=== PATIENT | male | born 1975 | race Hispanic/Latino ===

== ENCOUNTER → 2019-05-11 | Outpatient (CLI) | payer OTHER ==
[2019-05-11 14:32] LABS: BASOPHILS # (AUTO) 0.1 (0.0-0.1); BASOPHILS % 0.8 % (0.0-1.0); EOSINOPHILS # (AUTO) 0.3 (0.0-0.4); EOSINOPHILS % 3.1 % (0.0-6.0); HEMATOCRIT 47.2 % (38.2-49.6); HEMOGLOBIN 15.8 g/dL (14.0-18.0); MEAN CORPUSCULAR HEMOGLOBIN 29.4 pg (28-32); MEAN CORPUSCULAR HGB CONC 33.5 g/dL (31-35); MEAN CORPUSCULAR VOLUME 87.9 fL (81-99); MONOCYTES % 11.2 % (4.4-11.3); NEUTROPHILS # (AUTO) 4.6 (2.1-6.9); NEUTROPHILS % 51.1 % (38.7-80.0); PLATELET COUNT 328 x10e3/uL (140-360); RED BLOOD COUNT 5.37 x10e6/uL (4.3-5.7); RED CELL DISTRIBUTION WIDTH 13.2 % (11.7-14.4)
[2019-05-11 14:46] LABS: ALANINE AMINOTRANSFERASE 25 IU/L (0-55); ALBUMIN 4.6 g/dL (3.5-5.0); ALBUMIN/GLOBULIN RATIO 1.3 (0.8-2.0); ALKALINE PHOSPHATASE 68 IU/L (40-150); ANION GAP 13.9 mmol/L (8-16); BLOOD UREA NITROGEN 13 mg/dL (7-26); BUN/CREATININE RATIO 11 (6-25); CALCIUM 9.9 mg/dL (8.4-10.2); CARBON DIOXIDE 28 mmol/L (22-29); CHLORIDE 101 mmol/L (98-107); CREATININE, SERUM 1.18 mg/dL (0.72-1.25); EST GLOMERULAR FILTRATION RATE > 60 ML/MIN (60-); GLUCOSE 87 mg/dL (74-118); POTASSIUM 3.9 mmol/L (3.5-5.1); SODIUM 139 mmol/L (136-145)
[2019-05-11 15:06] LABS: FREE THYROXINE INDEX 2.6088 (1.4-3.8)
--- NOTE | 2019-05-11 15:37 | Diagnostic Imaging Report ---
EXAMINATION: CHEST 2 VIEWS INDICATION: Epigastric pain COMPARISON: Chest radiograph of 12/04/2009 FINDINGS: LINES/TUBES:None LUNGS:The lungs are well-inflated. No focal consolidation or pulmonary edema. PLEURA:No pleural effusion or pneumothorax. MEDIASTINUM:The cardiomediastinal silhouette appears normal in size and shape. BONES/SOFT TISSUES:No acute osseous injury. ABDOMEN:No free air under the diaphragm. IMPRESSION: No focal pneumonia or pulmonary edema. Signed by: Romel Gregory MD on 05/11/2019 3:34 PM
[2019-05-11 15:47] LABS: THYROID STIMULATING HORMONE 2.258 uIU/mL (0.350-4.940)
== END ==
LOC: RAD 14:05
PROVIDERS: ATTEND Surgery
DX: R10.13 Epigastric pain (principal)
CPT/HCPCS: 36415; 71046; 80053; 84436; 84443; 84479; 85025

== ENCOUNTER 2020-01-21 12:30 | Inpatient (IN) | payer OTHER ==
[~2020-01-21] VITALS: Ht 170.2 cm; Wt 95.3 kg
[2020-01-21] MEDS ORDERED: SODIUM CHLORIDE 0.9% 1000ML 1,000 ML IV STA (12:31)
--- OUTSIDE RECORDS SUMMARY | 2020-01-21 12:32 | XMS REPORT ---
Author Author [facility] Organization [facility] Address [address] [place] [address] [place] [id number] Phone Unavailable Care Team Providers Care Welder Setter Resistance Machine Name Role Phone Jaymie STEEL Attphys Unavailable Problems This patient has no known problems. Allergies, Adverse Reactions, Alerts This patient has no known allergies or adverse reactions. Medications This patient has no known medications. Procedures This patient has no known procedures. Results Test Description Test Time Test Comments Results Result Comments Source CHEST 2 VIEWS 2019-05-11 15:30:00 [place] [id number] Patient Name: AGUSTIN STEEL MR #: [id number] : 1975 Age/Sex: 43/M Req #: [id number] Adm Physician: Ordered by: HERMELINDO STEEL MD Report #: [id number] Location: [facility] Room/Bed: Procedure: [id number] DX/CHEST 2 VIEWS Exam Date: 05/11/19 Exam Time: 1504 REPORT STATUS: Signed EXAMINATION: CHEST 2 VIEWS INDICATION: Epigastric pain COMPARISON: Chest radiograph of 12/04/2009 FINDINGS: LINES/TUBES:None LUNGS:The lungs are well-inflated. No focal consolidation or pulmonary edema. PLEURA:No pleural effusion or pneumothorax. MEDIASTINUM:The cardiomediastinal silhouette appears normal in size and shape. BONES/SOFT TISSUES:No acute osseous injury. ABDOMEN:No free air under the diaphragm. IMPRESSION: No focal pneumonia or pulmonary edema. Signed by: Marie Gregory MD on 05/11/2019 3:34 PM Dictated By: MARIE GREGORY MD [id number] Transcribed By: KETURAH on 05/11/19 1534 COPY TO: HERMELINDO STEEL MD
[2020-01-21] MEDS ORDERED: AMIODARONE HCL 360MG 200 ML IV SCH ×2 (12:45→18:00)
[2020-01-21] MEDS ORDERED: ASPIRIN 81 MG CHEW TAB PO ONE ×2 (12:45→13:00)
[2020-01-21] MEDS ORDERED: AMIODARONE HCL 150MG 100 ML IV SCH (12:45)
--- NOTE | 2020-01-21 12:45 | NUR ---
PATIENT MOVED FROM ROOM 2 TO ROOM 1. PATIENT PLACED ON LIFEPACK AND GROUND WIRER. 6 MG ADENOSINE GIVEN TO LEFT AC 18G IVP AND FLUSHED. NO CHANGE IN RHYTHM NOTED. PATIENT TOLERATED WELL.
[2020-01-21] MEDS ORDERED: ADENOSINE 6MG/2ML 1 ML ONE (12:50)
--- NOTE | 2020-01-21 12:50 | NUR ---
12 MG ADENOSINE GIVEN TO LEFT AC 18G IVP AND FLUSHED IMMEDIATELY AFTER. PATIENT HAD BRIEF CHANGE TO NSR AND THEN RETURNED TO A-FLUTTER WITH A RATE IN THE 150'S. PATIENT TOLERATED WELL, APPEARS IN NO DISTRESS, DENIES ANY PAIN OR SHORTNESS OF BREATH.
[2020-01-21] MEDS ORDERED: ADENOSINE 6MG/2ML 2 ML ONE (12:55)
[2020-01-21 12:56] LABS: BASOPHILS # (AUTO) 0.1 (0.0-0.1); EOSINOPHILS # (AUTO) 0.2 (0.0-0.4); EOSINOPHILS % 2.5 % (0.0-6.0); LYMPHOCYTES # (AUTO) 3.5 (1.0-3.2); LYMPHOCYTES % 37.4 % (18.0-39.1); MEAN CORPUSCULAR HEMOGLOBIN 29.4 pg (28-32); MEAN CORPUSCULAR HGB CONC 33.3 g/dL (31-35); MEAN CORPUSCULAR VOLUME 88.1 fL (81-99); MONOCYTES # (AUTO) 1.2 (0.2-0.8); MONOCYTES % 12.6 % (4.4-11.3); NEUTROPHILS # (AUTO) 4.2 (2.1-6.9); NEUTROPHILS % 45.8 % (38.7-80.0); PLATELET COUNT 340 x10e3/uL (140-360); RED BLOOD COUNT 5.79 x10e6/uL (4.3-5.7)
[2020-01-21] MEDS ORDERED: ONDANSETRON HCL INJ 2MG/ML 2ML 2 MG/ML VIAL IV PRN (13:00)
[2020-01-21] MEDS ORDERED: METOPROLOL TARTRATE INJ 1 MG/ML VIAL IV PRN (13:00)
[2020-01-21] MEDS ORDERED: SODIUM CHLORIDE FLUSH 10 ML SYR INJ PRN (13:00)
[2020-01-21 13:07] LABS: INR 0.88; PROTHROMBIN TIME 12.4 seconds (11.9-14.5)
--- NOTE | 2020-01-21 13:09 | NUR ---
RESUMED CARE FROM PATRICK STEEL AND DR ROMANO AT BEDSIDE
[2020-01-21] MEDS ORDERED: AMIODARONE HCL 900 MG in DEXTROSE 5 % 500ML BOTTLE 500 ML IV SCH (13:15)
[2020-01-21] MEDS ORDERED: AMIODARONE HCL 150 MG in DEXTROSE 5% 100ML 100 ML IV SCH (13:15)
[2020-01-21 13:16] LABS: ALBUMIN 4.3 g/dL (3.5-5.0); ALBUMIN/GLOBULIN RATIO 1.1 (0.8-2.0); ANION GAP 14.9 mmol/L (8-16); CALCIUM 9.9 mg/dL (8.4-10.2); CREATININE, SERUM 1.47 mg/dL (0.72-1.25); MAGNESIUM 2.1 MG/DL (1.3-2.1); POTASSIUM 3.9 mmol/L (3.5-5.1)
--- NOTE | 2020-01-21 13:17 | Diagnostic Imaging Report ---
Examination: Single AP view of the chest. COMPARISON: Chest 2 views 05/11/2019 INDICATION: Palpitations IMPRESSION: 1. Lines and Tubes: None 2. Lungs are grossly clear. No consolidation or effusion. 3. Cardiomediastinal silhouette is normal. Pulmonary vasculature is normal. 4. No acute bony abnormalities. Signed by: Dr. Pierre Chakraborty M.D. on 01/21/2020 1:14 PM
[2020-01-21] MEDS ORDERED: APIXABAN 5 MG TABLET PO ONE (13:30)
--- OUTSIDE RECORDS SUMMARY | 2020-01-21 13:31 | XMS REPORT ---
Author Author [facility] Organization [facility] Address [address] [place] [address] Phone Unavailable Care Team Providers Care Sales Representative Leather Goods Name Role Phone Wang SOLIMAN Attphys Unavailable Jaymie STEEL Attphys Unavailable BRADLY ROMANO Admphys Unavailable Problems This patient has no known problems. Allergies, Adverse Reactions, Alerts This patient has no known allergies or adverse reactions. Medications This patient has no known medications. Procedures This patient has no known procedures. Results Test Description Test Time Test Comments Results Result Comments Source CHEST SINGLE (PORTABLE) 2020-01-21 13:13:00 [place] [address] Patient Name: AGUSTIN STEEL MR #: [id number] : 1975 Age/Sex: 44/M Req #: [id number] Adm Physician: Ordered by: KENDRA SOLIMAN MD Report #: [id number] Location: ER Room/Bed: Procedure: [id number] DX/CHEST SINGLE (PORTABLE) Exam Date: 01/21/20 Exam Time: 1257 REPORT STATUS: Signed Examination: Single AP view of the chest. COMPARISON: Chest 2 views 05/11/2019 INDICATION: Palpitations IMPRESSION: 1. Lines and Tubes: None 2. Lungs are grossly clear. No consolidation or effusion. 3. Cardiomediastinal silhouette is normal. Pulmonary vasculature is normal. 4. No acute bony abnormalities. Signed by: Dr. Zhang Chakraborty M.D. on 01/21/2020 1:14 PM Dictated By: ZHANG CHAKRABORTY MD 13 Transcribed By: KETURAH on 01/21/201313 COPY TO: KENDRA SOLIMAN MD CHEST 2 VIEWS 2019-05-11 15:30:00 [place] [id number] Patient Name: AGUSTIN STEEL MR #: [id number] : 1975 Age/Sex: 43/M Req #: [id number] Adm Physician: Ordered by: HERMELINDO STEEL MD Report #: [id number] Location: [facility] Room/Bed: Procedure: [id number] DX/CHEST 2 VIEWS Exam Date: 05/11/19 Exam [...] pneumonia or pulmonary edema. Signed by: Marie Goetz MD on 05/11/2019 3:34 PM Dictated By: MARIE GOETZ MD 33 Transcribed By: KETURAH on 05/11/191533 COPY TO: HERMELINDO STEEL MD
--- NOTE | 2020-01-21 13:44 | NUR ---
DR. ROMANO AT BEDSIDE RE EVALUATING PATIENT
--- NOTE | 2020-01-21 13:52 | Emergency Department Note ---
History of Present Illnes History of Present Illness Chief Complaint: Chest Pain History of Present Illness This is a 44 year old male COMPLAINTS OF SHORTNESS OF BREATH AND PALPITATIONS LAST NIGHT AFTER PLAYING GOLF, AND AGAIN TODAY. HIS UNCLE (DR Alessandro STEEL) CAME TO HOUSE FOUND HIS HR TO BE ~150 AND NORMAL BP AND BROUGHT HIM HERE Historian: Patient, Family Member Arrival Mode: Car Property Claim Rep Required: No Onset (how long ago): day(s) (YESTERDAY ~6 PM) Quality: NO PAIN Radiation: non-radiation Severity: moderate Onset quality: sudden Duration (how long): day(s) (YESTERDAY) Timing of current episode: constant Progression: unchanged Chronicity: new Context: recent illness Relieving factors: none Exacerbating factors: none Associated symptoms: shortness of breath Treatments prior to arrival: none Past Medical/Family History Physician Review I have reviewed the patient's past medical and family history. Any updates have been documented here. Past Medical History Recent Fever: No Clinical Suspicion of Infectio: No New/Unexplained Change in Ment: No Past Medical History: Hypertension Past Surgical History: Hernia Repair Social History Smoking Cessation: Never Smoker Counseling Performed: No Alcohol Use: Occasional Any Illegal Drug Use: No TB Exposure/Symptoms: No Physically hurt or threatened: No Family History Family history of heart diseas: Yes Other Last Tetanus: UTD Any Pre-Existing Lines (PICC,: No Is patient up to date on immun: Yes Last Flu: UTD Last Pneumovax: NA Review of Systems Review of Systems Constitutional: no symptoms EENTM: no symptoms Cardiovascular: palpitations; chest pain Respiratory: dyspnea Gastrointestinal: no symptoms Genitourinary: no symptoms Musculoskeletal: no symptoms Neurological: no symptoms Psychological: no symptoms Endocrine: no symptoms Hematological/Lymphatic: no symptoms Review of other systems All other systems reviewed and negative. Physical Exam Related Data Allergies: Coded Allergies: Penicillins (Verified Allergy, Severe, 01/21/20) Triage Vital Signs Vital Signs Date Time Temp Pulse Resp B/P (MAP) Pulse Ox O2 Delivery O2 Flow Rate FiO2 01/21/20 12:30 98.5 155 18 115/83 100 Physical Exam CONSTITUTIONAL Constitutional: well-developed, well-nourished HENT HENT: normocephalic, atraumatic, oropharynx clear/moist, nose normal HENT L/R: left ext ear normal, right ext ear normal EYES Eyes: PERRL, conjunctivae normal NECK Neck: ROM normal PULMONARY Pulmonary: effort normal, breath sounds normal CARDIOVASCULAR Cardiovascular: regular rhythm, heart sounds normal, capillary refill normal, tachycardia (150) GASTROINTESTINAL Abdominal: soft, nontender, bowel sounds normal GENITOURINARY Genitourinary: exam deferred SKIN Skin: warm, dry MUSCULOSKELETAL Musculoskeletal: ROM normal NEUROLOGICAL Neurological: alert, oriented x 3, no gross motor or sensory deficits PSYCHOLOGICAL Psychological: mood/affect normal, judgement normal Results Laboratory Result Diagram: 01/21/20 1230 01/21/20 1230 Laboratory Laboratory Tests Test 01/21/20 12:30 White Blood Count 9.23 x10e3/uL (4.8-10.8) Red Blood Count 5.79 x10e6/uL (4.3-5.7) Hemoglobin 17.0 g/dL (14.0-18.0) Hematocrit 51.0 % (38.2-49.6) Mean Corpuscular Volume 88.1 fL (81-99) Mean Corpuscular Hemoglobin 29.4 pg (28-32) Mean Corpuscular Hemoglobin Concent 33.3 g/dL (31-35) Red Cell Distribution Width 13.0 % (11.7-14.4) Platelet Count 340 x10e3/uL (140-360) Neutrophils (%) (Auto) 45.8 % (38.7-80.0) Lymphocytes (%) (Auto) 37.4 % (18.0-39.1) Monocytes (%) (Auto) 12.6 % (4.4-11.3) Eosinophils (%) (Auto) 2.5 % (0.0-6.0) Basophils (%) (Auto) 1.0 % (0.0-1.0) Neutrophils # (Auto) 4.2 (2.1-6.9) Lymphocytes # (Auto) 3.5 (1.0-3.2) Monocytes # (Auto) 1.2 (0.2-0.8) Eosinophils # (Auto) 0.2 (0.0-0.4) Basophils # (Auto) 0.1 (0.0-0.1) Absolute Immature Granulocyte (auto 0.06 x10e3/uL (0-0.1) Prothrombin Time 12.4 seconds (11.9-14.5) Prothromb Time International Ratio 0.88 Activated Partial Thromboplast Time 27.0 seconds (23.8-35.5) D-Dimer Quantitative (PE/DVT) 0.17 ug/mLFEU (0.00-0.45) Sodium Level 143 mmol/L (136-145) Potassium Level 3.9 mmol/L (3.5-5.1) Chloride Level 106 mmol/L (98-107) Carbon Dioxide Level 26 mmol/L (22-29) Anion Gap 14.9 mmol/L (8-16) Blood Urea Nitrogen 16 mg/dL (7-26) Creatinine 1.47 mg/dL (0.72-1.25) Estimat Glomerular Filtration Rate 52 ML/MIN (60-) BUN/Creatinine Ratio 11 (6-25) Glucose Level 90 mg/dL (74-118) Calcium Level 9.9 mg/dL (8.4-10.2) Magnesium Level 2.1 MG/DL (1.3-2.1) Total Bilirubin 0.6 mg/dL (0.2-1.2) Aspartate Amino Transf (AST/SGOT) 34 IU/L (5-34) Alanine Aminotransferase (ALT/SGPT) 52 IU/L (0-55) Alkaline Phosphatase 67 IU/L (40-150) Creatine Kinase 133 IU/L (30-200) Creatine Kinase MB 1.00 ng/mL (0-5.0) Troponin I 0.001 ng/mL (0-0.300) B-Type Natriuretic Peptide 160.2 pg/mL (0-100) Total Protein 8.1 g/dL (6.5-8.1) Albumin 4.3 g/dL (3.5-5.0) Globulin 3.8 g/dL (2.3-3.5) Albumin/Globulin Ratio 1.1 (0.8-2.0) Laboratory Tests Test 01/21/20 12:30 White Blood Count 9.23 x10e3/uL (4.8-10.8) Red Blood Count 5.79 x10e6/uL (4.3-5.7) Hemoglobin 17.0 g/dL (14.0-18.0) Hematocrit 51.0 % (38.2-49.6) Mean Corpuscular Volume 88.1 fL (81-99) Mean Corpuscular Hemoglobin 29.4 pg (28-32) Mean Corpuscular Hemoglobin Concent 33.3 g/dL (31-35) Red Cell Distribution Width 13.0 % (11.7-14.4) Platelet Count 340 x10e3/uL (140-360) Neutrophils (%) (Auto) 45.8 % (38.7-80.0) Lymphocytes (%) (Auto) 37.4 % (18.0-39.1) Monocytes (%) (Auto) 12.6 % (4.4-11.3) Eosinophils (%) (Auto) 2.5 % (0.0-6.0) Basophils (%) (Auto) 1.0 % (0.0-1.0) Neutrophils # (Auto) 4.2 (2.1-6.9) Lymphocytes # (Auto) 3.5 (1.0-3.2) Monocytes # (Auto) 1.2 (0.2-0.8) Eosinophils # (Auto) 0.2 (0.0-0.4) Basophils # (Auto) 0.1 (0.0-0.1) Absolute Immature Granulocyte (auto 0.06 x10e3/uL (0-0.1) Sodium Level 143 mmol/L (136-145) Potassium Level 3.9 mmol/L (3.5-5.1) Chloride Level 106 mmol/L (98-107) Carbon Dioxide Level 26 mmol/L (22-29) Anion Gap 14.9 mmol/L (8-16) Blood Urea Nitrogen 16 mg/dL (7-26) Creatinine 1.47 mg/dL (0.72-1.25) Estimat Glomerular Filtration Rate 52 ML/MIN (60-) BUN/Creatinine Ratio 11 (6-25) Glucose Level 90 mg/dL (74-118) Calcium Level 9.9 mg/dL (8.4-10.2) Magnesium Level 2.1 MG/DL (1.3-2.1) Total Bilirubin 0.6 mg/dL (0.2-1.2) Aspartate Amino Transf (AST/SGOT) 34 IU/L (5-34) Alanine Aminotransferase (ALT/SGPT) 52 IU/L (0-55) Alkaline Phosphatase 67 IU/L (40-150) Creatine Kinase 133 IU/L (30-200) Creatine Kinase MB 1.00 ng/mL (0-5.0) Troponin I 0.001 ng/mL (0-0.300) Total Protein 8.1 g/dL (6.5-8.1) Albumin 4.3 g/dL (3.5-5.0) Globulin 3.8 g/dL (2.3-3.5) Albumin/Globulin Ratio 1.1 (0.8-2.0) Lab results reviewed: Yes Imaging Imaging results reviewed: Yes Impressions Examination: Single AP view of the chest. COMPARISON: Chest 2 views 05/11/2019 INDICATION: Palpitations IMPRESSION: 1. Lines and Tubes: None 2. Lungs are grossly clear. No consolidation or effusion. 3. Cardiomediastinal silhouette is normal. Pulmonary vasculature is normal. 4. No acute bony abnormalities. Signed by: Dr. Pierre Chakraborty M.D. on 01/21/2020 1:14 PM Diagnostics Tests Diagnostic test(s) reviewed: Yes Procedures 12 Lead ECG Interpretation Property Claim Rep: Interpreted by ED physician Date: January 21, 2020 Time: 12:19 Prior PROJECT CONTROLS SCHEDULER tracings: reviewed Rhythm: atrial flutter (2:1) Rate: tachycardia (153) QRS axis: normal ST segments normal: Yes T wave depression: II, III, aVF Clinical Impression: abnormal ECG Critical Care Time Total Critical Care Time (min): 35 Critcal care necessary due to: circulatory failure (atrial flutter with RVR) Critcal care time spent by me: develop tx plan w patient/surrogate, discussion w consultants, evaluation patient response to tx, examination of patient, order/perform tx or interventions, order/review laboratory studies, order/review radiographic studies, pulse oximetry, re-evaluation of patient condition Subsequent provider I assumed direction of critical care for this patient from another provider of my specialty. Assessment & Plan Reassessment Reassessment NEW ONSET ATRIAL FLUTTER WITH RVR - CBC, CHEM, CARDIAC ENZYMES, COAG'S, D-DIMER, ECG, CXR - EVAL ELECTROLYTE ABNL, STEMI/NSTEMI, RE-ENTRANT TACHYCARDIA, PULMONARY EMBOLISM DR ROMANO HERE SEEING PT Assessment & Plan Final Impression: (1) New onset atrial flutter Assessment & Plan Dr Romano gave Adenosine 6 mg then 12 mg without benefit, will start Amiodarone, admit to IMCU Last Vital Signs Date Time Temp Pulse Resp B/P (MAP) Pulse Ox O2 Delivery O2 Flow Rate FiO2 01/21/20 13:18 144 18 124/94 100 01/21/20 12:30 98.5 Medications in the ED Sodium Chloride 1,000 ml @ 0 mls/hr Q0M STAT IV Last administered on 01/21/20at 12:31; Admin Dose 1,000 MLS/HR; Start 01/21/20 at 12:31; Stop 01/21/20 at 12:35; Status DC Aspirin 324 mg ONCE ONCE PO Last administered on 01/21/20at 13:18; Admin Dose 324 MG; Start 01/21/20 at 12:45; Stop 01/21/20 at 12:58; Status DC Amiodarone HCl 100 ml @ 600 mls/hr ONCE IV ; Start 01/21/20 at 12:45; Stop 02/20/20 at 12:44; Status UNV Amiodarone HCl 200 ml @ 16.6 mls/hr Q18H IV ; Start 01/21/20 at 12:45; Stop 01/22/20 at 06:44; Status UNV Adenosine 1 ml @ STK-MED ONCE .ROUTE ; Start 01/21/20 at 12:50; Stop 01/21/20 at 12:44; Status DC KENDRA SOLIMAN MD January 21, 2020 13:52
--- NOTE | 2020-01-21 13:52 | History and Physical ---
INDICATION: Palpitations. HISTORY OF PRESENT ILLNESS: Mr. Renee is a 44-year-old gentleman with hypertension, a long history of palpitations, currently on Bystolic 5 mg a day, compliant with medications. He comes in with a new onset of persistent palpitations for approximately 15 hours. In the emergency room, he was found to be in atrial flutter. He has received intravenous adenosine. He remains in flutter. At this point, complains of palpitations, some minor dizziness. Denies any chest pain or shortness of breath. PAST MEDICAL HISTORY: Hypertension. SOCIAL HISTORY: The patient does not smoke or drink. MEDICATIONS: Reviewed. FAMILY HISTORY: Noncontributory. REVIEW OF SYSTEMS: Negative except as dictated in history of present illness. PHYSICAL EXAMINATION: VITAL SIGNS: Afebrile. Heart rate is 152, blood pressure is 138/70. CARDIOVASCULAR: Regular rhythm, tachycardic. LUNGS: Clear to auscultation bilaterally. ABDOMEN: Soft. Bowel sounds are adequately. Pedal pulses 2+. No edema. DIAGNOSTIC DATA: Electrocardiogram shows atrial flutter. Labs are pending. ASSESSMENT: New onset atrial flutter. RECOMMENDATIONS: Adenosine fail to control his rhythm, it will be placed on intravenous amiodarone as well as anticoagulation with Eliquis 5 mg b.i.d., Bystolic 5 mg should be continued. Echocardiogram will be reviewed. The patient be placed on telemetry for rhythm monitoring. Once he has converted to sinus rhythm, he may be discharged and with close followup in the office. MD CHASITY Neville/THEA /[id number]
[2020-01-21] MEDS ORDERED: ADENOSINE 6 MG/2 ML VIAL IV ONE ×2 (17:45)
[2020-01-21 18:22] LABS: CREATINE KINASE MB 0.9 ng/mL (0-5.0)
--- NOTE | 2020-01-21 20:17 | NUR ---
Received change of shift report from AM nurse. Walking rounds completed.
[2020-01-21 20:40] VITALS: BP 120/93
[2020-01-21 20:46] VITALS: BP 120/93
[2020-01-21 22:33] VITALS: BP 120/93
[2020-01-22] VITALS: BP 106/83
--- NOTE | 2020-01-22 00:34 | NUR ---
Patient resting quitly at this time. HR in 50-60. Continue monitor. S/W Dr Arceo and informed him of stat of patient. Patient runs from A flutter to SB. Continue to monitor.
[2020-01-22 03:05] LABS: CREATINE KINASE 84 IU/L (30-200)
[2020-01-22 05:10] VITALS: BP 98/72
--- NOTE | 2020-01-22 06:14 | NUR ---
Patient ambulated to bathroom with no difficulty. Denies pain at this time. Patient converted from A. flutter to SB/SR. Continue monitor for changes in patient condition.
[2020-01-22 06:16] LABS: BASOPHILS # (AUTO) 0.1 (0.0-0.1); BASOPHILS % 0.7 % (0.0-1.0); EOSINOPHILS # (AUTO) 0.3 (0.0-0.4); EOSINOPHILS % 3.9 % (0.0-6.0); HEMATOCRIT 44.3 % (38.2-49.6); HEMOGLOBIN 14.7 g/dL (14.0-18.0); LYMPHOCYTES % 33.9 % (18.0-39.1); MEAN CORPUSCULAR HEMOGLOBIN 29.9 pg (28-32); MEAN CORPUSCULAR HGB CONC 33.2 g/dL (31-35); MEAN CORPUSCULAR VOLUME 90.2 fL (81-99); MONOCYTES # (AUTO) 0.9 (0.2-0.8); MONOCYTES % 10.3 % (4.4-11.3); NEUTROPHILS # (AUTO) 4.4 (2.1-6.9); NEUTROPHILS % 50.4 % (38.7-80.0); PLATELET COUNT 262 x10e3/uL (140-360); RED BLOOD COUNT 4.91 x10e6/uL (4.3-5.7)
[2020-01-22 06:47] LABS: ALANINE AMINOTRANSFERASE 40 IU/L (0-55); ALBUMIN 3.6 g/dL (3.5-5.0); ALBUMIN/GLOBULIN RATIO 1.2 (0.8-2.0); ALKALINE PHOSPHATASE 46 IU/L (40-150); ANION GAP 14.8 mmol/L (8-16); BLOOD UREA NITROGEN 13 mg/dL (7-26); BUN/CREATININE RATIO 11 (6-25); CARBON DIOXIDE 21 mmol/L (22-29); CHLORIDE 107 mmol/L (98-107); CHOL/HDL RATIO 5.8 (3.9-4.7); CHOLESTEROL 202 MD/DL (0-199); CREATININE, SERUM 1.16 mg/dL (0.72-1.25); EST GLOMERULAR FILTRATION RATE > 60 ML/MIN (60-); GLUCOSE 97 mg/dL (74-118); HDL CHOLESTEROL 35 MG/DL (40-60); LDL CHOLESTEROL 132 MG/DL (60-130); POTASSIUM 3.8 mmol/L (3.5-5.1); SODIUM 139 mmol/L (136-145); TRIGLYCERIDES 176 MG/DL (0-149)
[2020-01-22 07:17] LABS: CREATINE KINASE 75 IU/L (30-200)
[2020-01-22 07:48] LABS: MAGNESIUM 1.9 MG/DL (1.3-2.1)
[2020-01-22 08:00] VITALS: BP 133/97
[2020-01-22] MEDS ORDERED: NEBIVOLOL 10 MG TAB PO SCH (09:00)
[2020-01-22] MEDS ORDERED: BYSTOLIC10 MG PO (10:39)
--- NOTE | 2020-01-22 11:15 | NUR ---
PATIENT DISCHARGED HOME VERBALIZED UNDERSTANDING OF D/C INSTRUCTIONS.
[2020-01-22 11:29] LABS: PHOSPHORUS 4.3 MG/DL (2.3-4.7)
--- NOTE | 2020-01-22 11:41 | Progress Note ---
DATE: Cardiology Progress Note SUBJECTIVE: The patient is without any new complaints this morning. He reports that his palpitations seemed to resolve around 9 o'clock last night. Denies any chest pain, shortness of breath, or palpitations. OBJECTIVE: VITAL SIGNS: Temperature 97.2, pulse 77, respiratory rate 20, blood pressure 98/72, and oxygen saturation 95% on 2 L nasal cannula. CARDIOVASCULAR MEDICATIONS: Metoprolol 5 mg IV q.4 hours p.r.n., Bystolic 10 mg p.o. daily, Eliquis 5 mg p.o. b.i.d., and amiodarone IV drip. LABORATORY DATA: WBC 8.75, hemoglobin 14.7, hematocrit 44.3, and platelets 262. Sodium 129, potassium 3.8, BUN 13, and creatinine 1.16. Creatine kinase 75, CK-MB 0.60, and troponin less than 0.001. Triglycerides 176, cholesterol 202, LDL 132, and HDL 35. TELEMETRY: Sinus bradycardia. PHYSICAL EXAMINATION: GENERAL: Alert and oriented x3, resting comfortably in bed. Does not appear to be in any acute distress. NECK: Supple. No JVD noted. LUNGS: Clear to auscultation throughout. No wheezing. No rhonchi or crackles. CARDIOVASCULAR: Regular rate and rhythm, bradycardic. No murmurs, no gallops. Normal S1, S2. ABDOMEN: Soft, nontender. EXTREMITIES: Lower extremity, 2+ pedal pulses. No edema. No any other abnormalities. ASSESSMENT: New onset atrial flutter, resolved, in normal sinus rhythm this morning. PLAN: The patient was converted to sinus rhythm this morning. Symptoms have resolved. Continue medical management of above. The patient has been informed to follow up with Cardiology in next week on Thursday. Plan and further care as an outpatient. Will be discharged on oral amiodarone and also the above-listed cardiac medications. We will continue to follow this patient very closely. Dictated by Chloé Kelly NP MD BRIAN NevilleV/THEA /[id number]
== END 2020-01-22 11:15 | disposition home or self-care (01) | DRG 310 ==
LOC: ER 12:30 → ERHOLD 12:51 → IMCU 18:21
PROVIDERS: ADMIT Internal Medicine Interventional Cardiology; ATTEND Internal Medicine Interventional Cardiology
DX: I48.92 Unspecified atrial flutter (principal); I10 Essential (primary) hypertension
CPT/HCPCS: 36415; 71045; 80053; 80061; 82550; 82553; 83735; 83880; 84100; 84484; 85025; 85379; 85610; 85730; 87635; 93005; 93306; 96361; 99284; J0153; J7030

== ENCOUNTER 2021-06-28 19:42 | Observation (INO) | payer OTHER ==
[~2021-06-28] VITALS: Ht 172.7 cm; Wt 93.0 kg
[~2021-06-28 19:42] MED LIST changes: -DIATRIZOATE MEGL/DIATRIZOA SOD 30 ML BTL PO ONE; -IOPAMIDOL 370 MG/ML 200 ML INFUS..BTL INJ ONE; -SODIUM CHLORIDE 0.9% 50ML 50 ML ONE
[2021-06-28] MEDS ORDERED: ACETAMINOPHEN 325 MG TAB PO STA (20:00)
[2021-06-28] MEDS ORDERED: ONDANSETRON HCL INJ 2MG/ML 2ML 2 MG/ML VIAL IV PRN (20:00)
[2021-06-28] MEDS ORDERED: CIPROFLOXACIN 400 MG/D5W 200ML 200 ML IV SCH (20:00)
[2021-06-28] MEDS ORDERED: Morphine 2mg Syringe 2 MG/ML SYR IV PRN (20:00)
[2021-06-28] MEDS ORDERED: SODIUM CHLORIDE 0.9% 1000ML 1,000 ML IV STA (20:10)
[2021-06-28] MEDS ORDERED: ADENOSINE 6 MG/2 ML VIAL IV ONE ×3 (20:15)
[2021-06-28] MEDS ORDERED: DILTIAZEM HCL 5 MG/ML 5 ML VIAL IV ONE (20:30)
[2021-06-28] MEDS ORDERED: METOPROLOL TARTRATE INJ 1 MG/ML VIAL IV ONE (20:30)
[2021-06-28] MEDS: SODIUM CHLORIDE 0.9% 1000ML 1,000 ML IV SCH ×2 (20:30→21:36)
[2021-06-28] MEDS: METRONIDAZOLE 500MG/NS 100ML 100 ML IV SCH ×2 (20:30→21:00)
[2021-06-28] MEDS ORDERED: DIGOXIN INJ 0.25 MG/ML 2 ML AMP IV ONE (20:30)
[2021-06-28] MEDS: LEVOFLOXACIN 500MG/D5W 100ML 100 ML IV SCH (21:36)
[2021-06-28] MEDS ORDERED: SODIUM CHLORIDE 0.9% 1000ML 1,000 ML ONE (21:41)
[2021-06-29] VITALS (8 sets, daily range): BP systolic 100–127; BP diastolic 56–100
[2021-06-29 05:35] LABS: BASOPHILS # (AUTO) 0.1 (0.0-0.1); BASOPHILS % 0.5 % (0.0-1.0); EOSINOPHILS # (AUTO) 0.2 (0.0-0.4); EOSINOPHILS % 1.4 % (0.0-6.0); HEMATOCRIT 40.9 % (38.2-49.6); HEMOGLOBIN 13.8 g/dL (14.0-18.0); LYMPHOCYTES % 16.6 % (18.0-39.1); MEAN CORPUSCULAR HEMOGLOBIN 30.1 pg (28-32); MEAN CORPUSCULAR HGB CONC 33.7 g/dL (31-35); MEAN CORPUSCULAR VOLUME 89.3 fL (81-99); MONOCYTES # (AUTO) 1.8 (0.2-0.8); MONOCYTES % 14.9 % (4.4-11.3); NEUTROPHILS # (AUTO) 8.1 (2.1-6.9); NEUTROPHILS % 65.8 % (38.7-80.0); PLATELET COUNT 252 x10e3/uL (140-360); RED BLOOD COUNT 4.58 x10e6/uL (4.3-5.7); RED CELL DISTRIBUTION WIDTH 13.1 % (11.7-14.4)
[2021-06-29 05:59] LABS: ALBUMIN 3.5 g/dL (3.5-5.0); CALCIUM 8.7 mg/dL (8.4-10.2); CREATININE, SERUM 0.96 mg/dL (0.72-1.25)
[2021-06-29] MEDS: SODIUM CHLORIDE 0.9% 1000ML 1,000 ML IV SCH ×3 (08:55→20:00)
[2021-06-29] MEDS: METRONIDAZOLE 500MG/NS 100ML 100 ML IV SCH ×4 (08:56→21:20)
[2021-06-29] MEDS: ASPIRIN 81 MG CHEW TAB PO SCH (17:34)
[2021-06-29] MEDS: LEVOFLOXACIN 500MG/D5W 100ML 100 ML IV SCH (20:05)
[2021-06-30] VITALS: BP 139/75
[2021-06-30 04:00] VITALS: BP 106/72
[2021-06-30] MEDS: SODIUM CHLORIDE 0.9% 1000ML 1,000 ML IV SCH ×2 (04:00→10:00)
[2021-06-30 06:37] LABS: BASOPHILS # (AUTO) 0.1 (0.0-0.1); BASOPHILS % 0.6 % (0.0-1.0); EOSINOPHILS # (AUTO) 0.4 (0.0-0.4); EOSINOPHILS % 3.4 % (0.0-6.0); HEMATOCRIT 42.6 % (38.2-49.6); HEMOGLOBIN 13.7 g/dL (14.0-18.0); LYMPHOCYTES # (AUTO) 2.5 (1.0-3.2); LYMPHOCYTES % 22.9 % (18.0-39.1); MEAN CORPUSCULAR HEMOGLOBIN 29.1 pg (28-32); MEAN CORPUSCULAR HGB CONC 32.2 g/dL (31-35); MEAN CORPUSCULAR VOLUME 90.6 fL (81-99); MONOCYTES # (AUTO) 1.3 (0.2-0.8); MONOCYTES % 12.1 % (4.4-11.3); NEUTROPHILS # (AUTO) 6.6 (2.1-6.9); NEUTROPHILS % 59.5 % (38.7-80.0); PLATELET COUNT 282 x10e3/uL (140-360); RED CELL DISTRIBUTION WIDTH 12.8 % (11.7-14.4)
[2021-06-30 06:58] LABS: ALBUMIN 3.5 g/dL (3.5-5.0); ALBUMIN/GLOBULIN RATIO 0.9 (0.8-2.0); ANION GAP 15.1 mmol/L (8-16); CALCIUM 9.1 mg/dL (8.4-10.2); CREATININE, SERUM 1.09 mg/dL (0.72-1.25); POTASSIUM 4.1 mmol/L (3.5-5.1)
[2021-06-30 07:46] VITALS: BP 106/72
[2021-06-30 07:49] VITALS: BP 93/65
[2021-06-30] MEDS ORDERED: NEBIVOLOL 10 MG TAB PO SCH (09:00)
[2021-06-30] MEDS: METRONIDAZOLE 500MG/NS 100ML 100 ML IV SCH ×3 (10:16→17:46)
[2021-06-30] MEDS: ASPIRIN 81 MG CHEW TAB PO SCH (10:16)
[2021-06-30 11:19] VITALS: BP 118/87
[2021-06-30 15:41] VITALS: BP 115/81
[2021-07-01] MEDS ORDERED: NEBIVOLOL 10 MG TAB PO SCH (09:00)
== END 2021-06-30 18:25 | disposition home or self-care (01) ==
LOC: ER 19:47 → ERHOLD 19:53 → MED/SURG 23:07
PROVIDERS: ADMIT Surgery; ATTEND Surgery
DX: I48.91 Unspecified atrial fibrillation (principal); K57.32 Diverticulitis of large intestine without perforation or abscess without bleeding; I10 Essential (primary) hypertension; Z82.49 Family history of ischemic heart disease and other diseases of the circulatory system; Z20.822 Contact with and (suspected) exposure to COVID-19
CPT/HCPCS: 36415 ×2; 80053 ×2; 85025 ×2; 93005; 93306; 99284; G0378 ×3; J0153; J0744; J1160; J1956 ×2; J7030 ×3; U0002

== ENCOUNTER → 2021-06-28 | Outpatient (CLI) | payer OTHER ==
[~2021-06-28] MED LIST: BYSTOLIC10 MG PO; DIATRIZOATE MEGL/DIATRIZOA SOD 30 ML BTL PO ONE; IOPAMIDOL 370 MG/ML 200 ML INFUS..BTL INJ ONE; SODIUM CHLORIDE 0.9% 50ML 50 ML ONE
[2021-06-28 17:12] LABS: CLARITY,URINE CLEAR (CLEAR); COLOR,URINE YELLOW (YELLOW); LEUKOCYTE ESTERASE ,URINE NEGATIVE (NEGATIVE); NITRITE,URINE NEGATIVE (NEGATIVE); PROTEIN,URINE DIPSTICK NEGATIVE (NEGATIVE)
[2021-06-28 17:13] LABS: KETONES,URINE NEGATIVE (NEGATIVE); URINE UROBILINOGEN 0.2 mg/dL (0.2 - 1)
[2021-06-28 17:36] LABS: BASOPHILS # (AUTO) 0.1 (0.0-0.1); BASOPHILS % 0.4 % (0.0-1.0); EOSINOPHILS # (AUTO) 0.2 (0.0-0.4); EOSINOPHILS % 1.3 % (0.0-6.0); HEMATOCRIT 49.1 % (38.2-49.6); LYMPHOCYTES # (AUTO) 2.2 (1.0-3.2); LYMPHOCYTES % 13.4 % (18.0-39.1); MEAN CORPUSCULAR HEMOGLOBIN 29.5 pg (28-32); MEAN CORPUSCULAR HGB CONC 32.6 g/dL (31-35); MEAN CORPUSCULAR VOLUME 90.6 fL (81-99); MONOCYTES # (AUTO) 2.2 (0.2-0.8); MONOCYTES % 13.2 % (4.4-11.3); NEUTROPHILS # (AUTO) 11.9 (2.1-6.9); PLATELET COUNT 352 x10e3/uL (140-360); RED BLOOD COUNT 5.42 x10e6/uL (4.3-5.7); RED CELL DISTRIBUTION WIDTH 13.3 % (11.7-14.4)
[2021-06-28 18:02] LABS: ALBUMIN 4.5 g/dL (3.5-5.0); ALBUMIN/GLOBULIN RATIO 1.1 (0.8-2.0); ANION GAP 16.9 mmol/L (8-16); CALCIUM 9.4 mg/dL (8.4-10.2); CREATININE, SERUM 1.03 mg/dL (0.72-1.25); POTASSIUM 3.9 mmol/L (3.5-5.1)
== END ==
LOC: CT 16:35
PROVIDERS: ATTEND Surgery
DX: R10.30 Lower abdominal pain, unspecified (principal); K57.32 Diverticulitis of large intestine without perforation or abscess without bleeding; K44.9 Diaphragmatic hernia without obstruction or gangrene
CPT/HCPCS: 36415; 74177; 80053; 81003; 85025; Q9967

== ENCOUNTER 2024-02-15 07:21 | Inpatient (IN) | payer OTHER ==
[2024-02-09 11:24] LABS: BASOPHILS # (AUTO) 0.1 (0.0-0.1); BASOPHILS % 0.8 % (0.0-1.0); EOSINOPHILS # (AUTO) 0.4 (0.0-0.4); HEMATOCRIT 47.8 % (38.2-49.6); HEMOGLOBIN 16.3 g/dL (14.0-18.0); LYMPHOCYTES # (AUTO) 2.9 (1.0-3.2); LYMPHOCYTES % 32.6 % (18.0-39.1); MEAN CORPUSCULAR HEMOGLOBIN 30.2 pg (28-32); MEAN CORPUSCULAR HGB CONC 34.1 g/dL (31-35); MEAN CORPUSCULAR VOLUME 88.7 fL (81-99); MONOCYTES # (AUTO) 0.8 (0.2-0.8); MONOCYTES % 9.5 % (4.4-11.3); NEUTROPHILS # (AUTO) 4.7 (2.1-6.9); NEUTROPHILS % 52.6 % (38.7-80.0); PLATELET COUNT 308 x10e3/uL (140-360); RED BLOOD COUNT 5.39 x10e6/uL (4.3-5.7); RED CELL DISTRIBUTION WIDTH 13.1 % (11.7-14.4); WHITE BLOOD COUNT 8.83 x10e3/uL (4.8-10.8)
[2024-02-09 11:59] LABS: ALBUMIN 4.3 g/dL (3.5-5.0); ALBUMIN/GLOBULIN RATIO 1.2 (0.8-2.0); BILIRUBIN,TOTAL 0.5 mg/dL (0.2-1.2); CREATININE, SERUM 1.17 mg/dL (0.72-1.25)
[2024-02-09 15:07] LABS: ANION GAP 15.9 mmol/L (8-16); CALCIUM 8.8 mg/dL (8.4-10.2); POTASSIUM 3.9 mmol/L (3.5-5.1)
[~2024-02-15] VITALS: Ht 172.7 cm; Wt 93.0 kg
[2024-02-15] MEDS ORDERED: BUPIVACAINE 0.25% 30ML SDV ONE ×2 (09:00→14:54)
[2024-02-15] MEDS: LACTATED RINGER'S 1,000 ML ONE (11:09)
[2024-02-15] MEDS ORDERED: MINERAL OIL STERILE 10ML VIAL ONE (12:20)
[2024-02-15] MEDS ORDERED: DEXAMETHASONE SOD PHOS INJ 4 MG/ML SDV ONE (13:07)
[2024-02-15] MEDS ORDERED: FAMOTIDINE 20 MG/2 ML VIAL IV ONE (13:07)
[2024-02-15] MEDS ORDERED: ROCURONIUM BROMIDE 10 MG/ML 5ML VIAL IV ONE (13:07)
[2024-02-15] MEDS ORDERED: DEXMEDETOMIDINE HCL 200 MCG/2 ML VIAL ONE (13:07)
[2024-02-15] MEDS ORDERED: ACETAMINOPHEN 1000 MG/100 ML IV ONE (13:07)
[2024-02-15] MEDS ORDERED: PROPOFOL IV EMULSION 10 MG/ML 20 ML VIAL ONE (13:07)
[2024-02-15] MEDS ORDERED: PHENYLEPHRINE HCL 1% 10 MG/ML VIAL ONE (13:07)
[2024-02-15] MEDS ORDERED: LIDOCAINE HCL 2% LOCAL INJ 5 ML SDV VIAL INJ ONE (13:07)
[2024-02-15] MEDS ORDERED: ONDANSETRON HCL INJ 2MG/ML 2ML 2 MG/ML VIAL ONE (13:07)
[2024-02-15] MEDS ORDERED: SUGAMMADEX SODIUM 200 MG/2 ML VIAL IV ONE (13:07)
[2024-02-15] MEDS ORDERED: MIDAZOLAM HCL 2 MG/2 ML VIAL ONE (14:18)
[2024-02-15] MEDS ORDERED: FENTANYL CITRATE/PF 100MCG/2 ML INJ ONE (14:18)
[2024-02-15] MEDS ORDERED: SILVER NITRATE SWABS ONE (15:28)
[2024-02-15] MEDS ORDERED: MUPIROCIN 2% OINT 22 GM TUBE ONE (15:31)
[2024-02-15] MEDS ORDERED: NALOXONE HCL INJ 0.4 MG/ML AMP IV PRN (15:45)
[2024-02-15] MEDS: HYDROMORPHONE 0.2MG/ML-SOD CHL 30ML PCA SYRINGE IV PRN (15:58)
[2024-02-15 16:45] VITALS: BP 140/88; PULSE 78; RESP 17; TEMP 97.6; O2SAT 94
[2024-02-15] MEDS: LABETALOL HCL 20 ML ONE (17:18)
[2024-02-15] MEDS: BUPIVACAINE LIPOSOME/PF 266 MG/20 ML IJ ONE (17:19)
[2024-02-15] MEDS: LEVOFLOXACIN 500MG/D5W 100ML 100 ML IV ONE (17:19)
[2024-02-15] MEDS: SODIUM CHLORIDE 0.9% 1000ML 1,000 ML IV SCH (17:27)
[2024-02-15 17:33] VITALS: PULSE 84; RESP 18; O2SAT 94
[2024-02-15] MEDS: SODIUM CHLORIDE 0.9% 250ML IRRIG IR SCH (17:33)
[2024-02-15] MEDS ORDERED: HYDROMORPHONE 0.2MG/ML-SOD CHL 30ML PCA SYRINGE IV PRN (18:45)
[2024-02-15 20:00] VITALS: BP 126/82; PULSE 85; RESP 18; TEMP 98; O2SAT 96
[2024-02-15 21:15] VITALS: BP 126/82; PULSE 85; RESP 18; TEMP 98; O2SAT 96
[2024-02-16] VITALS (10 sets, daily range): BP systolic 133–186; BP diastolic 82–112; PULSE 80–115; RESP 18; TEMP 98.1–98.9; O2SAT 94–99
[2024-02-16 05:30] LABS: BASOPHILS % 0.1 % (0.0-1.0); HEMOGLOBIN 14.4 g/dL (14.0-18.0); LYMPHOCYTES # (AUTO) 1.2 (1.0-3.2); LYMPHOCYTES % 8.3 % (18.0-39.1); MEAN CORPUSCULAR HEMOGLOBIN 30.2 pg (28-32); MEAN CORPUSCULAR HGB CONC 34.3 g/dL (31-35); MEAN CORPUSCULAR VOLUME 88.1 fL (81-99); MONOCYTES # (AUTO) 1.2 (0.2-0.8); NEUTROPHILS # (AUTO) 12.4 (2.1-6.9); NEUTROPHILS % 83.2 % (38.7-80.0); PLATELET COUNT 286 x10e3/uL (140-360); RED BLOOD COUNT 4.77 x10e6/uL (4.3-5.7); RED CELL DISTRIBUTION WIDTH 12.6 % (11.7-14.4); WHITE BLOOD COUNT 14.91 x10e3/uL (4.8-10.8)
[2024-02-16 05:54] LABS: ALBUMIN 3.8 g/dL (3.5-5.0); ALBUMIN/GLOBULIN RATIO 1.1 (0.8-2.0); ANION GAP 16.3 mmol/L (8-16); BILIRUBIN,TOTAL 0.8 mg/dL (0.2-1.2); CALCIUM 9.2 mg/dL (8.4-10.2); CREATININE, SERUM 1.15 mg/dL (0.72-1.25); POTASSIUM 4.3 mmol/L (3.5-5.1); TOTAL PROTEIN 7.2 g/dL (6.5-8.1)
[2024-02-16] MEDS: ACETAMINOPHEN 1000 MG/100 ML IV PRN (10:52)
[2024-02-16] MEDS: LEVOFLOXACIN 500MG/D5W 100ML 100 ML IV ONE (10:55)
[2024-02-16] MEDS: KETOROLAC TROMETHAMINE 30 MG/ML VIAL IV PRN (21:41)
[2024-02-17] VITALS (8 sets, daily range): BP systolic 120–157; BP diastolic 91–102; PULSE 67–84; RESP 18–20; TEMP 97.7–98.6; O2SAT 95–99
[2024-02-17 05:41] LABS: BASOPHILS # (AUTO) 0.1 (0.0-0.1); BASOPHILS % 0.3 % (0.0-1.0); EOSINOPHILS % 0.1 % (0.0-6.0); HEMATOCRIT 41.4 % (38.2-49.6); HEMOGLOBIN 13.5 g/dL (14.0-18.0); LYMPHOCYTES # (AUTO) 2.2 (1.0-3.2); LYMPHOCYTES % 15.6 % (18.0-39.1); MEAN CORPUSCULAR HEMOGLOBIN 29.6 pg (28-32); MEAN CORPUSCULAR HGB CONC 32.6 g/dL (31-35); MEAN CORPUSCULAR VOLUME 90.8 fL (81-99); MONOCYTES # (AUTO) 1.8 (0.2-0.8); MONOCYTES % 12.4 % (4.4-11.3); NEUTROPHILS # (AUTO) 10.1 (2.1-6.9); NEUTROPHILS % 70.8 % (38.7-80.0); PLATELET COUNT 282 x10e3/uL (140-360); RED BLOOD COUNT 4.56 x10e6/uL (4.3-5.7); RED CELL DISTRIBUTION WIDTH 12.6 % (11.7-14.4); WHITE BLOOD COUNT 14.29 x10e3/uL (4.8-10.8)
[2024-02-17 06:21] LABS: ALBUMIN 3.5 g/dL (3.5-5.0); ALBUMIN/GLOBULIN RATIO 1.1 (0.8-2.0); ANION GAP 15.9 mmol/L (8-16); BILIRUBIN,TOTAL 0.7 mg/dL (0.2-1.2); CALCIUM 8.6 mg/dL (8.4-10.2); CREATININE, SERUM 0.95 mg/dL (0.72-1.25); POTASSIUM 3.9 mmol/L (3.5-5.1); TOTAL PROTEIN 6.6 g/dL (6.5-8.1)
[2024-02-17] MEDS: LEVOFLOXACIN 500MG/D5W 100ML 100 ML IV SCH (11:00)
[2024-02-17] MEDS: BISACODYL 10 MG SUPP PR ONE (11:01)
[2024-02-18] VITALS (10 sets, daily range): BP systolic 145–196; BP diastolic 103–121; PULSE 89–119; RESP 17–20; TEMP 97.9–98.6; O2SAT 96–100
[2024-02-18] MEDS: HYDRALAZINE HCL 20 MG/ML VIAL IV STA (00:31)
[2024-02-18 05:25] LABS: BASOPHILS # (AUTO) 0.1 (0.0-0.1); BASOPHILS % 0.8 % (0.0-1.0); EOSINOPHILS # (AUTO) 0.1 (0.0-0.4); EOSINOPHILS % 1.2 % (0.0-6.0); HEMATOCRIT 43.1 % (38.2-49.6); HEMOGLOBIN 15.1 g/dL (14.0-18.0); LYMPHOCYTES # (AUTO) 2.3 (1.0-3.2); MEAN CORPUSCULAR HEMOGLOBIN 30.3 pg (28-32); MEAN CORPUSCULAR VOLUME 86.5 fL (81-99); MONOCYTES # (AUTO) 1.4 (0.2-0.8); MONOCYTES % 11.7 % (4.4-11.3); NEUTROPHILS # (AUTO) 7.6 (2.1-6.9); NEUTROPHILS % 65.7 % (38.7-80.0); PLATELET COUNT 277 x10e3/uL (140-360); RED BLOOD COUNT 4.98 x10e6/uL (4.3-5.7); RED CELL DISTRIBUTION WIDTH 12.3 % (11.7-14.4); WHITE BLOOD COUNT 11.55 x10e3/uL (4.8-10.8)
[2024-02-18 05:54] LABS: ALBUMIN 3.9 g/dL (3.5-5.0); ALBUMIN/GLOBULIN RATIO 1.1 (0.8-2.0); ANION GAP 18.3 mmol/L (8-16); BILIRUBIN,TOTAL 1.1 mg/dL (0.2-1.2); CALCIUM 8.8 mg/dL (8.4-10.2); CREATININE, SERUM 0.9 mg/dL (0.72-1.25); TOTAL PROTEIN 7.4 g/dL (6.5-8.1)
[2024-02-18 05:57] LABS: POTASSIUM 3.3 mmol/L (3.5-5.1)
[2024-02-18] MEDS: HYDRALAZINE HCL 20 MG/ML VIAL IV PRN (06:17)
[2024-02-18] MEDS: METOPROLOL SUCCINATE 25 MG TAB XL PO ONE (09:32)
[2024-02-18] MEDS: BISACODYL 10 MG SUPP PR ONE (09:43)
[2024-02-18] MEDS ORDERED: NEOMYCIN/POLYMYX/BACITR OINT 0.9 GM PKT TOP SCH (17:45)
[2024-02-18] MEDS ORDERED: HYDROCODONE/APAP 7.5MG-325MG 1 EA TAB PO PRN (17:45)
[2024-02-18] MEDS: NEOMYCIN/POLYMYX/BACITR OINT 0.9 GM PKT TOP PRN (19:47)
[2024-02-19] VITALS (7 sets, daily range): BP systolic 104–156; BP diastolic 63–99; PULSE 73–92; RESP 18–20; TEMP 97.3–98.4; O2SAT 97–99
[2024-02-19] MEDS: METOPROLOL SUCCINATE 25 MG TAB XL PO SCH (08:19)
== END 2024-02-19 18:30 | disposition home or self-care (01) | DRG 331 ==
LOC: OR 07:21 → PACU V 15:45 → MED/SURG 16:40
PROVIDERS: ADMIT Surgery; ATTEND Surgery
PROC: 0DTN4ZZ Resection of Sigmoid Colon, Percutaneous Endoscopic Approach (ICD-10-PCS; principal; 2024-02-15 11:39)
DX: K57.92 Diverticulitis of intestine, part unspecified, without perforation or abscess without bleeding (principal); I48.91 Unspecified atrial fibrillation; Z88.0 Allergy status to penicillin
CPT/HCPCS: 36415; 80053; 85025; 88307; 93005; 94799; C1766; J0360; J1100; J1885; J1956; J2001; J2250; J2371; J2405; J7030